=== PATIENT | male | born 1980 | race Caucasian/White ===

== ENCOUNTER 2017-11-13 20:40 | Emergency (ER) | payer MEDICAID ==
[~2017-11-13] VITALS: Ht 170.2 cm; Wt 97.0 kg
[2017-11-13] MEDS ORDERED: KETOROLAC 60MG/2ML VIAL IM ONE (23:15)
[2017-11-14 01:15] VITALS: BP 144/89
== END 2017-11-14 01:15 | disposition home or self-care (01) ==
LOC: ER 20:40
DX: S63.92XA Sprain of unspecified part of left wrist and hand, initial encounter (principal); E78.00 Pure hypercholesterolemia, unspecified; W18.39XA Other fall on same level, initial encounter; Y93.89 Activity, other specified; Y92.89 Other specified places as the place of occurrence of the external cause; Y99.8 Other external cause status
CPT/HCPCS: 29105; 73080; 73090; 73110; 73130; 96372; 99284; J1885; Z7610; A4565

== ENCOUNTER 2018-08-05 20:25 | Emergency (ER) | payer MEDICAID, OTHER ==
[~2018-08-05] VITALS: Ht 157.5 cm; Wt 88.0 kg
[2018-08-05] MEDS ORDERED: IBUPROFEN 800MG TABLET PO ONE (23:15)
[2018-08-06 01:41] VITALS: BP 123/78
== END 2018-08-06 02:14 | disposition home or self-care (01) ==
LOC: ER 20:25
DX: M25.562 Pain in left knee (principal); R03.0 Elevated blood-pressure reading, without diagnosis of hypertension; R73.03 Prediabetes; Z72.0 Tobacco use
CPT/HCPCS: 73562; 99283; L1830